=== PATIENT | female | born 1985 | race Hispanic/Latino ===

== ENCOUNTER → 2018-10-22 | Outpatient (CLI) | payer BC ==
--- NOTE | 2018-10-23 17:59 | US ---
EXAM DESCRIPTION: Breast,Bilateral: Ultrasound CLINICAL HISTORY: 33 yearsFemaleUNSPECIFIED LUMP IN LOQ OF RIGHT AND LEFT BREAST. Bilateral breast tenderness. No personal or family history of breast cancer. Childbirth. Premenopausal. No HRT. Risk assessment not performed due to patient age less than 35. COMPARISON: None. TECHNIQUE: Transcutaneous scanning of the bilateral breast 4 quadrant technique utilizing dubon-scale and Doppler modes. Scanning performed by the butcher all round ; observation by Dr. Mendoza. FINDINGS: Scanning of the left breast in all 4 quadrants with mostly fatty echotexture. No dominant solid mass or distinct cyst. No parenchymal edema or large calcifications. No overlying skin changes. Normal vascularity. Scanning all 4 quadrants of the right breast. Mostly fatty echotexture. At the 9:30 clock position 2 cm from the nipple, is a oval-shaped anechoic object with circumscribed margins. Dimensions 8.1 x 6.2 x 1.3 mm. Wider than tall orientation and posterior acoustic enhancement. Nonvascular. Most likely a cyst. No dominant solid mass. No parenchymal edema or large calcifications. No overlying skin changes. Normal vascularity. IMPRESSION: Benign exam. BIRAD CATEGORY: 2 BENIGN FINDINGS. RECOMMENDATIONS: FOLLOW UP: Routine digital bilateral mammographic screening, beginning at age 40. Any further breast imaging performed for this condition should be based upon additional clinical findings or laboratory testing. Written communication explaining the IMPRESSION and follow-up, will be mailed to the patient and referring health care provider. The FINDINGS and the FOLLOW-UP plan were reviewed in person with the patient after the examination. According to the [employer], yearly mammograms are recommended starting at age 40 and continuing as long as a woman is in good health. Any breast change noted on a breast self-exam should be reported promptly to the patient's healthcare provider. Breast MRI is recommended for women with an approximately 20-25% or greater lifetime risk of breast cancer, including women with a strong family history of breast or ovarian cancer and women who have been treated for Hodgkin's disease. A negative mammographic report should not delay tissue diagnosis in patients with significant clinical history or physical findings. Extremely dense breast tissue limits the sensitivity of digital mammography. Electronically signed by: Manny Mendoza MD 10/23/2018 5:56 PM CDT
== END ==
LOC: MAMMO 11:06
PROVIDERS: ATTEND Nurse Practitioner Family
DX: N63.13 Unspecified lump in the right breast, lower outer quadrant (principal); N63.23 Unspecified lump in the left breast, lower outer quadrant

== ENCOUNTER → 2019-10-30 | Outpatient (CLI) | payer BC ==
--- NOTE | 2019-10-31 10:08 | US ---
EXAM DESCRIPTION: Renal: Ultrasound. CLINICAL HISTORY: 34 years Female UTI COMPARISON: None TECHNIQUE: Transcutaneous scanning: Two-dimensional and Doppler modes. FINDINGS: Right kidney measures 10.8 x 4.8 x 4.0 cm; mid-renal cortical thickness 13 mm with normal .echogenicity. No hydronephrosis No echogenic stones. Smooth contour of the kidney with no perinephric fluid. Normal vascularity. Proximal ureter not visualized.. Left kidney measures 12 x 4.6 x 4.3 cm; mid-renal cortical thickness 14 mm with normal. echogenicity. No hydronephrosis. No echogenic stones. Smooth contour of the kidney with no perinephric fluid. Normal vascularity.. Proximal ureter not visualized.. Urinary bladder was visualized. 154.2 mL prevoid. Ureteral jet in the bladder seen bilaterally by color Doppler 6.4 mL post void. 147.8 mL micturition volume Abdominal aorta: Normal caliber from the proximal segment to the distal bifurcation. IMPRESSION: 1. Bilateral kidneys unremarkable. No hydronephrosis or findings of pyelonephritis or scarring. 2. Bladder was well-visualized with normal micturition volume. 3. Abdominal aorta normal caliber. Electronically signed by: Manny Mendoza MD 10/31/2019 10:06 AM CDT
== END ==
LOC: US 10:47
PROVIDERS: ATTEND Family Medicine
DX: N39.0 Urinary tract infection, site not specified (principal)

== ENCOUNTER → 2020-02-18 | Outpatient (CLI) | payer BC | LOC: GMAM 14:16 | PROVIDERS: ATTEND Family Medicine | DX: R10.11 Right upper quadrant pain (principal); R10.13 Epigastric pain ==

== ENCOUNTER → 2020-05-07 | Outpatient (CLI) | payer BC | LOC: YCFC.O 11:48 | PROVIDERS: ATTEND Nurse Practitioner Family | DX: Z20.828 Contact with and (suspected) exposure to other viral communicable diseases (principal) ==

== ENCOUNTER → 2020-05-13 | Outpatient (CLI) | payer BC ==
--- NOTE | 2020-05-13 11:41 | RAD ---
EXAM: Chest,2 Views INDICATION: 35 years Female, COUGH COMPARISON: Single view of the chest 12/25/2014 FINDINGS: Two views of the chest were performed. Heart size is within normal limits. Probable subtle hazy opacity in the peripheral left upper lobe. No pleural effusion. No pneumothorax. The osseous structures are intact. Unremarkable appearance of the visualized upper abdomen. IMPRESSION: Probable subtle peripheral left upper lobe infiltrate. Findings are compatible with pneumonia in the appropriate clinical setting. Electronically signed by: Lisha Desai MD 05/13/2020 11:40 AM [facility]
== END ==
LOC: YCFC.O 10:55
PROVIDERS: ATTEND Nurse Practitioner Family
DX: Z20.828 Contact with and (suspected) exposure to other viral communicable diseases (principal); R91.8 Other nonspecific abnormal finding of lung field; R05 Cough

== ENCOUNTER 2020-05-20 17:19 | Emergency (ER) | payer BC ==
--- NOTE | 2020-05-20 18:07 | ED.PDOC ---
History of Present Illness - General Time Seen by Provider: 05/20/20 17:25 Source: patient, RN notes reviewed, Vital Signs reviewed, old records Exam Limitations: no limitations - History of Present Illness Comments: 35 yo F with hx of asthma, dx with covid one week ago. 10 days of pleuritic chest pain, dry cough. no fever. no sore throat. + nasal congestion and body aches. patient was prescribed a 5 day course of amoxicillin and predispose. last dose 2 days ago. Allergies/Adverse Reactions: Allergies Cefaclor [From Ceclor] Allergy (Verified 05/20/20 18:27) Rash Levofloxacin [From Levaquin] Allergy (Verified 05/20/20 18:27) Rash Sulfa Drugs Allergy (Verified 05/20/20 18:27) Home Medications: Ambulatory Orders Albuterol Inhaler [Ventolin Hfa Inhaler] 1 puff INH PRN PRN 12/06/14 Vit W/ Ferrous Fumara [] 1 tab PO DAILY 12/06/14 Promethazine Tab [Phenergan Tablet] 25 mg PO Q4H PRN 12/06/14 Nitrofurantoin Monohydrate Mac [Macrobid] 100 mg PO BID #14 cap 12/13/14 Promethazine Supp [Phenergan Suppository] 25 mg VA Q6HRS PRN #15 sup 01/11/15 Dicyclomine HCl [Bentyl] 20 mg PO TID #15 tab 01/12/15 Ondansetron [Zofran Odt] 4 mg PO Q6H #20 tab 01/12/15 Promethazine Tab [Phenergan Tablet] 25 mg PO Q6H #20 tab 01/12/15 Azithromycin 250 mg PO DAILY #6 tab 05/20/20 Review of Systems - Review of Systems Constitutional: States: malaise. Denies: chills, fever EENTM: States: nose congestion. Denies: blurred vision, throat pain, mouth swelling Respiratory: States: cough, short of breath. Denies: stridor, wheezing Cardiology: Denies: chest pain, palpitations, syncope Gastrointestinal/Abdominal: Denies: abdominal pain, diarrhea, nausea, vomiting Genitourinary: Denies: dysuria, frequency, hematuria Musculoskeletal: States: muscle pain. Denies: back pain, joint pain, joint swelling Skin: Denies: rash Neurological: Denies: headache, numbness, paresthesia, tingling, tremors, weakness Endocrine: Denies: increased urine, unexplained weight gain, unexplained weight loss Hematologic/Lymphatic: Denies: blood clots, easy bleeding, easy bruising Past Medical History (General) - Patient Medical History Hx Seizures: No Hx Stroke: No Hx Dementia: No Hx Asthma: Yes Hx of COPD: No Hx Cardiac Disorders: No Hx Congestive Heart Failure: No Hx Pacemaker: No Hx Hypertension: No Hx Thyroid Disease: No Hx Diabetes: No Hx Gastroesophageal Reflux: No Hx Renal Disease: No Hx Cancer: No Hx of HIV: No Hx Hepatitis C: No Hx MRSA: No - Vaccination History Hx Tetanus, Diphtheria Vaccination: Yes Hx Influenza Vaccination: Yes Hx Pneumococcal Vaccination: No - Social History Hx Tobacco Use: No Hx Chewing Tobacco Use: No Hx Alcohol Use: No Hx Substance Use: No Hx Substance Use Treatment: No Hx Depression: No Hx Physical Abuse: No Hx Emotional Abuse: No Hx Suspected Abuse: No - Female History Hx Last Menstrual Period: 10/19/14 Patient : Yes Expected Date of Delivery:: 07/26/15 Hx Gestational Age: 6 Family Medical History - Family History Mother Family History: Unknown Living Status: Still Living Hx Family;Other: HAS HYPERTENSION,KIDNEY FAILURE,DIABETES,MELENOMOS, ON MATERNAL SIDE,UNKNOWN ON PATERNAL SIDE. Physical Exam - Physical Exam General Appearance: Alert, Comfortable, No apparent distress, Well Developed, Well Groomed, Well Hydrated, Well Nourished Eye Exam: bilateral normal ENT Exam: normal ENT inspection, hearing grossly normal Neck: non-tender, full range of motion, supple, normal inspection, trachea midline Respiratory: chest non-tender, lungs clear, normal breath sounds, no respiratory distress, no accessory muscle use, other - dry hacking cough noted Cardiovascular/Chest: normal peripheral pulses, regular rate, rhythm, no edema, no gallop, no JVD, no murmur Gastrointestinal/Abdominal: normal bowel sounds, non tender, soft, no organomegaly, no pulsatile mass Extremity: normal range of motion, non-tender, normal inspection, no pedal edema, no calf tenderness, normal capillary refill 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, no motor/sensory deficits, alert, normal mood/affect, oriented x 3 Skin Exam: normal color, warm/dry Progress - Progress Progress: 11/11/20 20:38 05/20/20 18:15 Pulse Ox, Continuous Monitoring STAT Laboratory Results WBC 7.9 K/mm3 (4.8-10.8) 05/20/20 18:23 RBC 4.98 M/mm3 (4.20-5.40) 05/20/20 18:23 Hgb 14.4 gm/dL (12.0-16.0) 05/20/20 18: Hct 40.6 % (36.0-47.0) 05/20/20 18:23 MCV 81.5 fl (81.0-99.0) 05/20/20 18: MCH 28.9 pg (27.0-31.0) 05/20/20 18: MCHC 35.5 g/dL (33.0-37.0) 05/20/20 18:23 RDW 13.0 % (11.5-14.5) 05/20/20 18:23 Plt Count 269 K/mm3 (130-400) 05/20/20 18:23 MPV 7.4 fl (7.40-10.4) 05/20/20 18:23 Absolute Neuts (auto) 3.40 K/uL (1.8-6.8) 05/20/20 18:23 Absolute Lymphs (auto) 3.60 K/uL (1.0-3.4) H 05/20/20 18:23 Absolute Monos (auto) 0.60 K/uL (0.2-0.8) 05/20/20 18: Absolute Eos (auto) 0.20 K/uL (0.0-0.4) 05/20/20 18:23 Absolute Basos (auto) 0.10 K/uL (0.0-0.1) 05/20/20 18:23 Neutrophils % 43.2 % (42.0-78.0) 05/20/20 18:23 Lymphocytes % 45.2 % (20.0-50.0) 05/20/20 18:23 Monocytes % 7.0 % (2.0-9.0) 05/20/20 18:23 Eosinophils % 3.1 % (1.0-5.0) 05/20/20 18:23 Basophils % 1.5 % (0.0-2.0) 05/20/20 18:23 PTT (SP) 24.7 SECONDS (21.8-31.6) 05/20/20 18: D-Dimer, Quantitative 570.0 ng/ml (131-400) H 05/20/20 18:23 Sodium 139 mmol/L (135-145) 05/20/20 18:23 Potassium 3.7 mmol/L (3.6-5.0) 05/20/20 18: Chloride 105 mmol/L (101-111) 05/20/20 18:23 Carbon Dioxide 23 mmol/L (21-31) 05/20/20 18:23 Anion Gap 14.7 (12-18) 05/20/20 18: BUN 15 mg/dL (7-18) 05/20/20 18: Creatinine 0.66 mg/dL (0.6-1.3) 05/20/20 18: BUN/Creatinine Ratio 22.7 (10-20) H 05/20/20 18: Random Glucose 112 mg/dL (70-105) H 05/20/20 18:23 Serum Osmolality 279.1 mOsm/L (275-295) 05/20/20 18: Calcium 8.7 mg/dL (8.4-10.2) 05/20/20 18: Magnesium 2.1 mg/dL (1.8-2.5) 05/20/20 18:23 Total Bilirubin 0.4 mg/dL (0.2-1.0) 05/20/20 18:23 AST 17 IU/L (10-42) 05/20/20 18:23 ALT 16 IU/L (10-60) 05/20/20 18:23 Alkaline Phosphatase 40 IU/L (42-121) L 05/20/20 18: LD Total 112 IU/L (91-180) 05/20/20 18:23 Creatine Kinase 27 IU/L (26-140) 05/20/20 18:23 Troponin I < 0.02 ng/mL (0.01-0.05) 05/20/20 18: C-Reactive Protein 1.2 mg/dL (0-1.0) H 05/20/20 18: Serum Total Protein 7.0 gm/dL (6.4-8.2) 05/20/20 18:23 Albumin 3.7 g/dl (3.2-5.5) 05/20/20 18:23 Globulin 3.3 gm/dL (2.3-3.5) 05/20/20 18:23 Albumin/Globulin Ratio 1.1 (1.1-1.9) 05/20/20 18:23 - Results/Orders Results/Orders: The data reviewed when caring for this patient included: nurse notes, prior records, etc. The history and assessments from nurses notes were reviewed and considered, and the patient's home medication list was also reviewed and considered. My assessment and the results of testing completed here in the ED were discussed with the patient/family. All questions were answered, and they express understanding of my assessment and the plan. They have been instructed to return if their symptoms worsen, and have been asked to follow up with their primary care physician to recheck today's presenting complaint. Strict return precautions given. I have reviewed medication, benefits, alternatives and side effects. Patient decided to proceed with medication. Miriam Ruvalcaba DO #[id number] - EKG/XRAY/CT XRAY: elbow - left midlobe pnuemonia. Departure - Departure Clinical Impression: COVID-19 Pneumonia Qualifiers: Pneumonia type: due to unspecified organism Laterality: left Lung location: upper lobe of lung Qualified Code(s): J18.9 - Pneumonia, unspecified organism Time of Disposition: 19:03 Disposition: Discharge to Home or Self Care Departure Forms: ED Discharge - Pt. Copy, Patient Portal Self Enrollment Instructions: Cough in Adults Diet: resume usual diet Referrals: KEZIA GUPTA NP [Primary Care Provider] - 1-5 Days Prescriptions: Azithromycin 250 mg PO DAILY #6 tab Home Medications: Ambulatory Orders Albuterol Inhaler [Ventolin Hfa Inhaler] 1 puff INH PRN PRN 12/06/14 Vit W/ Ferrous Fumara [] 1 tab PO DAILY 12/06/14 Promethazine Tab [Phenergan Tablet] 25 mg PO Q4H PRN 12/06/14 Nitrofurantoin Monohydrate Mac [Macrobid] 100 mg PO BID #14 cap 12/13/14 Promethazine Supp [Phenergan Suppository] 25 mg VA Q6HRS PRN #15 sup 01/11/15 Dicyclomine HCl [Bentyl] 20 mg PO TID #15 tab 01/12/15 Ondansetron [Zofran Odt] 4 mg PO Q6H #20 tab 01/12/15 Promethazine Tab [Phenergan Tablet] 25 mg PO Q6H #20 tab 01/12/15 Azithromycin 250 mg PO DAILY #6 tab 05/20/20
[2020-05-20 18:27] VITALS: O2SAT 98
[2020-05-20] MEDS ORDERED: DEXAMETHASONE 4 MG TAB PO ONE (19:03)
--- NOTE | 2020-05-20 19:07 | RAD ---
EXAM DESCRIPTION: Chest,1 View CLINICAL HISTORY:35 years Female, covid Comparison: Chest radiograph dated May 13, 2020 FINDINGS: Prominence of interstitium and focal opacity in the left midlung zone. No pleural effusion. No pneumothorax. Cardiomediastinal silhouette is within normal limits. Possible small granuloma in the left lower lobe. No acute osseous abnormality. IMPRESSION: Left midlung zone opacity concerning for pneumonia. Electronically signed by: Zac Silva DO 05/20/2020 7:06 PM [facility]
[2020-05-20 19:23] VITALS: BP 150/93; TEMP 97.6
== END 2020-05-20 19:21 | disposition home or self-care (01) ==
LOC: ER 17:19
DX: U07.1 COVID-19 (principal); J12.89 Other viral pneumonia; J45.909 Unspecified asthma, uncomplicated; Z79.899 Other long term (current) drug therapy; Z88.1 Allergy status to other antibiotic agents; Z88.2 Allergy status to sulfonamides
CPT/HCPCS: 36415; 71045; 80053; 82550; 83615; 83735; 84484; 85025; 85379; 85730; 86140; J8540